=== PATIENT | female | born 1955 | race Hispanic/Latino ===

== ENCOUNTER 2017-04-10 18:46 | Inpatient (IN) | payer OTHER, BC ==
[2017-04-10 18:47] VITALS: BMI 35.4
--- NOTE | 2017-04-10 19:10 | ED PDOC ---
Arrival/HPI - General Historian: Patient EM Caveat: Acuity of Condition - History of Present Illness Time/Duration: Prior to Arrival Symptom Onset: Sudden Symptom Course: Unchanged Quality: Aching Severity Level: Mild Activities at Onset: Rest Context: Home <URIAH SANTOS - Last Filed: 04/10/17 20:48> <Sherwin Enriquez - Last Filed: 04/10/17 22:30> - General Chief Complaint: Lower Extremity Problem/Injury - History of Present Illness Narrative History of Present Illness (Text): 04/10/17 19:06 62yo F PMH HTN and b/l knee arthritis who presents s/p fall x2 earlier today. pt states that she was getting into her 's van (elevated) and bumped her L knee as she was getting in, twisted her R leg and fell out on the ground. Pt had trouble getting back on her feet, and felt her knees locking as she tried extending her knees. Pt required assistance in getting off the ground and in walking to the house. as she was getting into the house, the pt fell into the house at the last step and could not get up. She denies head trauma, LOC. She did complain about some dizziness and nausea. Pt remained on the floor till EMT arrived. 04/10/17 19:11 (URIAH SANTOS) Past Medical History - Provider Review Nursing Documentation Reviewed: Yes - Past History Past History: Non-Contributing - Reproductive Menopause: Yes - Past Medical History Past Medical History: Non-Contributing - Cardiac Hx Cardiac Disorders: Yes Hx Hypertension: Yes - Pulmonary Hx Respiratory Disorders: No - Neurological Hx Neurological Disorder: No - HEENT Hx HEENT Disorder: No - Renal Hx Renal Disorder: Yes Hx Kidney Stones: Yes (PASSED WITHOUT INTERVENTION) - Endocrine/Metabolic Hx Endocrine Disorders: No - Hematological/Oncological Hx Blood Disorders: No - Integumentary Hx Dermatological Disorder: No - Musculoskeletal/Rheumatological Hx Musculoskeletal Disorders: Yes Hx Osteoarthritis: Yes (b/l knees) - Gastrointestinal Hx Gastrointestinal Disorders: No - Genitourinary/Gynecological Hx Genitourinary Disorders: No - Psychiatric Hx Psychophysiologic Disorder: No Hx Substance Use: No - Surgical History Hx Arthroscopy: Yes (BILAT KNEES) Hx Hysterectomy: Yes Other/Comment: uterin ca - Anesthesia Hx Anesthesia: Yes Hx Anesthesia Reactions: No Hx Malignant Hyperthermia: No <URIAH SANTOS - Last Filed: 04/10/17 20:48> Family/Social History Smoking Status: Former Smoker Hx Alcohol Use: No Hx Substance Use: No <URIAH SANTOS - Last Filed: 04/10/17 20:48> - Physician Review Nursing Documentation Reviewed: Yes Family/Social History: Unknown Family HX <Sherwin Enriquez - Last Filed: 04/10/17 22:30> Allergies/Home Meds <URIAH SANTOS - Last Filed: 04/10/17 20:48> <Sherwin Enriquez - Last Filed: 04/10/17 22:30> Allergies/Adverse Reactions: Allergies No Known Allergies Allergy (Verified 04/10/17 19:03) Home Medications: Home Meds Medication Instructions Recorded Confirmed Enalapril Maleate 20 mg PO DAILY 07/04/14 04/10/17 Aspirin [Ecotrin] 81 mg PO DAILY 04/10/17 04/10/17 Review of Systems - Physician Review All systems were reviewed & negative as marked: Yes - Review of Systems Systems not reviewed;Unavailable: Acuity of Condition Constitutional: Normal. absent: Fatigue Musculoskeletal: Normal, Arthralgias (b/l knees ), Joint Swelling (b/l knees). absent: Back Pain, Neck Pain Neurological: Dizziness (mild ). absent: Headache, Focal Weakness, Gait Changes , Disequilibrium <URIAH SANTOS Last Filed: 04/10/17 20:48> Physical Exam Vital Signs Reviewed: Yes Appearance: Positive for: Well-Appearing Pain Distress: None Mental Status: Positive for: Alert and Oriented X 3 - Systems Exam Head: Present: Atraumatic, Normocephalic Pupils: Present: PERRL Extroacular Muscles: Present: EOMI Conjunctiva: Present: Normal Ears: Present: Normal Nose (External): Present: Atraumatic Neck: Present: Normal Range of Motion. No: MIDLINE TENDERNESS, Paraspinal Tenderness Respiratory/Chest: Present: Clear to Auscultation, Accessory Muscle Use Cardiovascular: Present: Regular Rate and Rhythm, Normal S1, S2 Abdomen: Present: Normal Bowel Sounds. No: Tenderness, Distention Back: Present: Normal Inspection Upper Extremity: Present: Normal Inspection, Normal ROM, NORMAL PULSES. No: Edema Lower Extremity: Present: Normal Inspection, NORMAL PULSES, Normal ROM, Other ( tender to palpation L superior patella and R lateral tibial plateau). No: CALF TENDERNESS, Deformity Neurological: Present: Speech Normal, Motor Func Grossly Intact, Normal Sensory Function Skin: Present: Warm, Dry, Normal Color <TOMURIAH - Last Filed: 04/10/17 20:48> Vital Signs Temp Pulse Resp BP Pulse Ox 04/10/17 18:54 98.8 F 102 H 18 162/84 H 100 Medical Decision Making <URIAH SANTOS - Last Filed: 04/10/17 20:48> <Sherwin Enriquez - Last Filed: 04/10/17 22:30> ED Course and Treatment: 04/10/17 19:14 Impression: b/l knee pain s/p fall Differential Diagnosis included but are not limited to: patellar fracture vs contusion vs arthritic pain Plan: - Reassess and disposition - B/L knee XRays Progress Notes: (URIAH SANTOS) Patient Seen With Resident: In agreement with resident note which contains more details about the patient. Patient was seen and evaluated with resident. Came up with plan and treatment together. 04/10/17 21:57 Seen and examined with the resident. Our history and physical exam reveals a who had minor injuries to both knees when she was getting into an SUV. She then fell injuring both knees. She is either unable or unwilling to straight leg raise on both lower extremities. Her lower legs on both lower extremities fall against gravity when her femurs are held. She may have bilateral ruptured quadriceps mechanism. I discussed her case with the orthopedist who requested the patient be admitted to the PMD and he will see the patient in the morning. 04/10/17 22:14 Discussed with 's PA, J Luis, who will admit to his service. Admitting laboratories and EKG have been ordered for her to follow. MRI has been ordered for the morning 04/10/17 22:29 EKG shows normal sinus rhythm rate approximately [address] or T-wave changes (Sherwin Enriquez) - RAD Interpretation Radiology Orders: 04/10/17 19:03 KNEE W PATELLA BILAT 3 VIEW [RAD] Stat 04/10/17 22:16 KNEE W/O CONTRAST BILATERAL [MRI] Urgent Disposition/Present on Arrival - Present on Arrival History of DVT/PE: No History of Uncontrolled Diabetes: No Urinary Catheter: No History of Decub. Ulcer: No History Surgical Site Infection Following: None <URIAH SANTOS - Last Filed: 04/10/17 20:48> - Present on Arrival Any Indicators Present on Arrival: No History of DVT/PE: No History of Uncontrolled Diabetes: No Urinary Catheter: No History of Decub. Ulcer: No - Disposition Have Diagnosis and Disposition been Completed?: Yes Disposition Time: 22:16 Patient Plan: Observation <Sherwin Enriquez - Last Filed: 04/10/17 22:30> - Disposition Diagnosis: Ruptured, tendon, quadriceps Disposition: HOSPITALIZED Patient Problems: Current Active Problems Problem Status Onset Ruptured, tendon, quadriceps Acute Condition: GOOD Referrals: Anderson Hector MD [Primary Care Provider] - Follow up with primary Forms: [employer] (Hebrew)
[2017-04-10 23:34] LABS: BASO # 0.01 K/mm3 (0.0-2.0); BASO % 0.1 % (0.0-3.0); GRAN # 15.23 (1.4-6.5); HEMATOCRIT 38.8 % (36.0-48.0); LYMPH # 1.1 (1.2-3.4); LYMPH % 6.5 % (22.0-35.0); MEAN CELL VOLUME 82.2 fl (80.0-105.0); MEAN CORPUSCULAR HEMOGLOBIN 27.3 pg (25.0-35.0); MEAN CORPUSCULAR HGB CONC 33.2 g/dl (31.0-37.0); MEAN PLATELET VOLUME 9.4 fl (7.0-11.0); MONO # 0.8 (0.1-0.6); MONO % 4.4 % (1.0-6.0); RED CELL DISTRIBUTION WIDTH 14.5 % (11.5-14.5); WHITE BLOOD COUNT 17.1 10^3/ul (4.5-11.0)
[2017-04-10 23:43] LABS: INR 0.94 (0.93-1.08); PARTIAL THROMBOPLASTIN TIME 26.6 Seconds (23.7-30.8)
[2017-04-10 23:45] LABS: ALB/GLOB RATIO 1.5 (1.1-1.8); ALKALINE PHOSPHATASE 82 U/L (38-126); ALT/SGPT 35 U/L (7-56); AST/SGOT 31 U/L (14-36); BILIRUBIN,TOTAL 0.3 mg/dL (0.2-1.3); BLOOD UREA NITROGEN 27 mg/dL (7-21); CALCIUM 9.4 mg/dL (8.4-10.5); CARBON DIOXIDE 21 mmol/L (21-33); CHLORIDE 106 mmol/L (98-107); GFR AFRICAN-AMERICAN > 60; GLUCOSE,RANDOM 116 mg/dL (70-110); POTASSIUM 3.8 mmol/L (3.6-5.0); SODIUM 137 mmol/L (132-148); TOTAL PROTEIN 7.3 g/dL (5.8-8.3)
[2017-04-10 23:56] LABS: TROPONIN I 0.02 ng/mL
[2017-04-11] MEDS: Oxycodone/Acetaminophen 5/325 mg Tab PO PRN ×2 (01:39→21:09)
[2017-04-11] MEDS: HYDROmorphone 0.5 mg/0.5 ml ISec IVP PRN ×4 (02:51→23:52)
--- NOTE | 2017-04-11 08:58 | RAD ---
PROCEDURE: Bilateral Knee Radiographs. HISTORY: s/p fall COMPARISON: None. FINDINGS: BONES: Right Knee: Normal. No fracture. Left Knee: Normal. No fracture. JOINTS: Right Knee: Tricompartmental osteoarthritis most prominent in medial and patellofemoral compartments. No articular erosions. Left knee: Tricompartmental osteoarthritis most prominent in medial and patellofemoral compartments. No articular erosions. SOFT TISSUES: Right Knee: Normal. Left Knee: Normal. JOINT EFFUSION: Right Knee: None. Left Knee: None. OTHER FINDINGS: None. IMPRESSION: Bilateral tricompartmental osteoarthritis. No acute fracture.
--- NOTE | 2017-04-11 09:33 | CARD ---
APPROVED REPORT EKG Measurement Heart [id number] <Conclusion> Normal sinus rhythm Normal ECG
--- NOTE | 2017-04-11 09:50 | RAD ---
HISTORY: pre op COMPARISON: 02/15/2014 FINDINGS: LUNGS: No active pulmonary disease. PLEURA: No significant pleural effusion identified, no pneumothorax apparent. CARDIOVASCULAR: Normal. OSSEOUS STRUCTURES: No significant abnormalities. VISUALIZED UPPER ABDOMEN: Normal. OTHER FINDINGS: None. IMPRESSION: No active disease.
--- NOTE | 2017-04-11 10:23 | CON ---
ORTHOPEDIC CONSULT DATE: 04/11/2017 HISTORY OF PRESENT ILLNESS: The patient was admitted to the emergency room last night, on 04/10/2017 with bilateral knee pain. Diagnosis was made after we did bilateral MRI showing that she has rupture of both quadriceps and then towards on the left than the right will require repair to give her functional knees because she is unable to fully extend her knee and difficult to her quadriceps because of the disruption of quadriceps tendon and no major medical problems, hopefully we could do it today to perform primary repair with FiberWire and ZipLoop technology to secure the quadriceps to the patella and okay for function of the ambulate with a walker, but she have to be in bilateral splints for at least 6 weeks so the tissues heal and have to be without protective splint. She should have to walk with a walker for now and she could put weight on both legs after surgery and then after 6 weeks she should be able to be pretty with smaller brace to rule out to walk with protection hinged brace and then therapy, and she may have to go to subacute rehab, but she cannot handle her disability at home. We will get in to that later, but hopefully we could do the surgery today when the patient is cleared by Dr. Hector. Grayson Byrd DO
--- NOTE | 2017-04-11 10:59 | HP ---
HISTORY OF PRESENT ILLNESS: Paris is a 62-year-old white female with a history of bilateral osteoarthritis of both knees and hypertension. The patient was in her usual state of health when she had difficulty a van and had fallen and also injured her knees on the opening of the van door. She has a history of bilateral knee arthritis. She fell approximately 2 times on the day of admission, getting injured her 's van and hit both left and right knee, twisted, and she fell to the ground, and she had trouble getting back of her feet. She fell again, trying to get to her feet, then she was able to be brought to the emergency room after she had gone home and fell in her house again, would not able to pick any steps, came to the hospital, and was admitted. The patient on admission had x-rays of the knees done and also had MRI and was found to have bilateral quadriceps muscle rupture of left and right knee. The patient does have history of hypertension. She takes lisinopril at home 20 mg once a day for blood pressure. She received pain medication in the emergency room. She does have a history of arthroscopic knee surgery on the right knee by Dr. Bolivar in the past. PHYSICAL EXAMINATION: GENERAL: The patient is a well-developed slightly obese white female in moderate distress. VITAL SIGNS: Blood pressure of 148/63, heart rate of 91, and temperature of 98.2. HEENT: Essentially within normal limits. HEART: Regular sinus rhythm. No S3 or murmurs. CHEST: Clear to auscultation and percussion. Carotid without bruits. ABDOMEN: Benign. EXTREMITIES: Without cyanosis, clubbing, or edema. There is tenderness and pain in both thighs and crepitus of both knees without erythema without evidence of cellulitis. LABORATORY DATA: Revealed white count of 17,100 on admission. She is also found to have an old BUN and creatinine. Sugar was 116. Potassium was 3.8. Troponins were negative. IMPRESSION AND PLAN: Bilateral quadriceps rupture on the left and right knee in the patient who recently fell multiple times and the history of degenerative arthritis of the knees and mild hypertension. The patient is medically cleared for surgery today and will be follows postoperatively. Anderson Hector MD
--- NOTE | 2017-04-11 11:26 | MRI ---
MRI right and left knee History: Trauma. Quadriceps tendon rupture. Comparison: None available. Technique: Multi-echo multiplanar sequences were performed through the right and left knee without the use of intravenous contrast. Findings: Right knee: Anterior cruciate ligament is preserved. Posterior cruciate ligament is preserved. Blunting and fraying noted at the posterior horn of the medial meniscus with some adjacent increased signal at the posterior meniscocapsular junction suggestive for a tear. Adjacent moderate to high-grade strain at the posterior meniscocapsular junction. Additional blunting at the tip of the body of the medial meniscus. Lateral meniscus is preserved. High-grade sprain and or partial tear the medial collateral ligament. High-grade sprain of the fibular collateral ligament. Biceps femoris and popliteus tendon attachments are preserved. Complete rupture of the quadriceps tendon with approximately 1.2 centimeter retraction of the distal tendon fibers from the superior patella. Complete rupture of the medial patellar retinaculum from its attachment on the medial patella. Near complete/complete rupture of the lateral patellar retinaculum with a few tendon strand fibers perhaps partially intact. Laxity of the patellar tendon. Prominent cartilage thinning and loss overlying the medial and lateral patellar facets. Mild lateral subluxation of the patella. Moderate cartilage thinning and loss involving the anterior to midportion of the medial compartment of the femorotibial joint space. 3 millimeter subchondral cyst formation within the posterior proximal tibia. Mild cartilage thinning overlying the anterior aspect of the lateral femoral condyle. Moderate suprapatellar joint effusion. Heterogeneity of the visualized marrow with patchy decreased T1 signal suggestive for hematopoietic marrow reconversion. Left knee: Thinning and fraying with increased signal seen within the visualized anterior cruciate ligament suggestive for partial tearing with a moderate grade sprain. Posterior cruciate ligament is preserved. Complex tear at the junction of the body and posterior horn of the medial meniscus with blunting of the posterior horn. Linear grade 1 intrasubstance degeneration in the anterior root and horn of the lateral meniscus. Partial tear and or high grade sprain of proximal attachment medial collateral ligament. High-grade strain of the iliotibial band. Fibular collateral ligament is preserved. Biceps femoris tendon attachment is preserved. Popliteus tendon attachment is preserved. Complete rupture of the quadriceps tendon with 1.2 centimeter retraction of the distal tendon strand fibers from the superior patella. Partial tearing with high grade strain of the lateral patellar retinaculum with some lateral subluxation of the patella. Prominent amount of loculated fluid and or hemorrhage seen overlying the lateral patella and lateral patellar retinacula measuring up 4.3 x 1.4 centimeters. Moderate to high grade strain of the medial patellar retinaculum which appears thinned and attenuated. Laxity of the patellar tendon. Prominent cartilage thinning and loss overlying the medial and lateral patellar facets. Prominent cartilage thinning and loss involving the anterior midportion of the medial compartment of the femorotibial joint space. Signal change in the adjacent marrow of the mid medial proximal tibia at the articular surface suggestive for osteochondral change. Cartilage thinning overlying the anterior aspect of the lateral femoral condyle signal change in the adjacent marrow suggestive for osteochondral change. Small suprapatellar joint effusion. Heterogeneity of the visualized marrow with patchy decreased T1 signal suggestive for hematopoietic marrow reconversion. Prominent signal abnormality seen within the visualized vastus medialis and lateralis musculature distally which may represent a partial tear and or sprain. Impression: Right Knee: 1. Complete rupture of the quadriceps tendon with approximately 1.2 centimeter retraction of the distal tendon fibers from the superior patella. 2. Complete rupture of the medial patellar retinaculum from its attachment on the medial patella. 3. Near complete/complete rupture of the lateral patellar retinaculum with a few tendon strand fibers perhaps partially intact. 4. Blunting and fraying noted at the posterior horn of the medial meniscus with some adjacent increased signal at the posterior meniscocapsular junction suggestive for a tear. Adjacent moderate to high-grade strain at the posterior meniscocapsular junction. Additional blunting at the tip of the body of the medial meniscus. 5. High-grade sprain and or partial tear the medial collateral ligament. 6. High-grade sprain of the fibular collateral ligament. 7. Prominent cartilage thinning and loss overlying the medial and lateral patellar facets. Mild lateral subluxation of the patella. Moderate cartilage thinning and loss involving the anterior to midportion of the medial compartment of the femorotibial joint space. 3 millimeter subchondral cyst formation within the posterior proximal tibia. Mild cartilage thinning overlying the anterior aspect of the lateral femoral condyle. 8. Moderate suprapatellar joint effusion. Left knee: 1. Complete rupture of the quadriceps tendon with 1.2 centimeter retraction of the distal tendon strand fibers from the superior patella. 2. Partial tearing with high grade strain of the lateral patellar retinaculum with some lateral subluxation of the patella. Prominent amount of loculated fluid and or hemorrhage seen overlying the lateral patella and lateral patellar retinacula measuring up 4.3 x 1.4 centimeters. 3. Moderate to high grade strain of the medial patellar retinaculum which appears thinned and attenuated. 4. Thinning and fraying with increased signal seen within the visualized anterior cruciate ligament suggestive for partial tearing with a moderate grade sprain. 5. Complex tear at the junction of the body and posterior horn of the medial meniscus with blunting of the posterior horn. 6. Linear grade 1 intrasubstance degeneration in the anterior root and horn of the lateral meniscus. 7. Partial tear and or high grade sprain of proximal attachment medial collateral ligament. 8. High-grade strain of the iliotibial band. 9. Prominent cartilage thinning and loss overlying the medial and lateral patellar facets. Prominent cartilage thinning and loss involving the anterior midportion of the medial compartment of the femorotibial joint space. Signal change in the adjacent marrow of the mid medial proximal tibia at the articular surface suggestive for osteochondral change. Cartilage thinning overlying the anterior aspect of the lateral femoral condyle signal change in the adjacent marrow suggestive for osteochondral change. 10. Small suprapatellar joint effusion. 11. Heterogeneity of the visualized marrow with patchy decreased T1 signal suggestive for hematopoietic marrow reconversion. 12. Prominent signal abnormality seen within the visualized vastus medialis and lateralis musculature distally which may represent a partial tear and or sprain.
[2017-04-11] MEDS ORDERED: Midazolam 2 MG/2 ML VIAL ONE (14:36)
[2017-04-11] MEDS ORDERED: Propofol 10 mg/ml Inj (20 ML) ONE (14:36)
[2017-04-11] MEDS ORDERED: Rocuronium 10 mg/ml (5 ml) ONE ×2 (14:40→15:46)
[2017-04-11] MEDS ORDERED: Bupivacaine 0.5% Inj(30mL) ONE ×2 (14:43→17:22)
[2017-04-11] MEDS ORDERED: Vancomycin 1 g Inj ONE (16:09)
[2017-04-11] MEDS ORDERED: Bupivacaine 0.25% Inj(30mL) ONE (17:22)
[2017-04-11] MEDS ORDERED: Glycopyrrolate 0.2 mg/ml (2ml vial) ONE (17:53)
[2017-04-11] MEDS ORDERED: Neostigmine Methylsulfate 3mg/3ml Syringe IV ONE (17:53)
[2017-04-11] MEDS ORDERED: HYDROmorphone 0.5 mg/0.5 ml ISec ONE (18:43)
[2017-04-11] MEDS ORDERED: HYDROmorphone 0.5 mg/0.5 ml ISec IVP PRN (18:43)
[2017-04-11] MEDS ORDERED: Lactated Ringer's 1,000 ML IV SCH (18:45)
[2017-04-11] MEDS ORDERED: HYDROmorphone 0.5 mg/0.5 ml ISec SC PRN (19:14)
[2017-04-11] MEDS ORDERED: ceFAZolin 1 gm in NS 1 GM/100 ML BAG IVPB STA (19:22)
[2017-04-11] MEDS: Dextrose 5%/0.45% NS 1,000 ML IV SCH (19:59)
[2017-04-12] MEDS: Oxycodone/Acetaminophen 5/325 mg Tab PO PRN ×2 (02:15→09:43)
[2017-04-12] MEDS: HYDROmorphone 0.5 mg/0.5 ml ISec IVP PRN ×2 (04:05→08:56)
[2017-04-12] MEDS: ceFAZolin 1 gm in NS 1 GM/100 ML BAG IVPB SCH ×4 (06:55→21:13)
--- NOTE | 2017-04-12 08:12 | OP ---
DATE: 04/11/2017 PREOPERATIVE DIAGNOSIS: Bilateral quadriceps tear, acute from day of injury of 04/10/2017, getting out of her car. POSTOPERATIVE DIAGNOSIS: Bilateral quadriceps tear, acute from day of injury of 04/10/2017, getting out of her car. PROCEDURE: Primary repair of both right and left quadriceps tendons with 100% disruption of both of them with medial and lateral retinacular disruption with ZipLoops with ToggleLoc from [employer] x4, two for the right and two for left side. TYPE OF ANESTHESIA: General endotracheal tube. DESCRIPTION OF PROCEDURE: The patient was taken to OR. Both legs were prepped and draped in a sterile fashion. The right leg was done first, making vertical incision over the right knee, 3 inches above and 3 inches below the tip of the patella, deep knife used to go through the tissues. Abundant adipose tissue identified. Right away, we could see the torn quadriceps tendon proximal to the patella, which was debrided off its necrotic tissue and we roughened up the patella superior surface to allow the tendon to adhere to better. Then we put the ZipLoc ToggleLoc devices from [employer], one in the lateral retinacular and the lateral portion of the quadriceps coming up vertically incorporating the ToggleLoc Ziploop and tying up proximally of the #5 FiberWire. Then, we put a medial bank of quadriceps Krackow sutures in from proximal to distal and then distal to proximal tying the sutures and incorporated the ToggleLoc loop. We did this to the right knee, so now we had control of the medial and lateral portions of the quadriceps. We pulled on it. As we took out this slack and has good suture control of the quadriceps, so I put in the drill holes in the patella and passed the medial ZipLoc device to anchor into the distal portion of the patella and then we did the same thing on the medial side of that right knee. We cinched down the knot until the quadriceps adhere to the proximal portion of the patella and we flexed the knee to 90 degrees without any disruption. Then we closed the wound with controlling bleeding with electrocautery, irrigated out with normal saline putting some powder vancomycin in the depth of the wound and approximating the medial and lateral retinacular tears with #1 Vicryl and multiple subcutaneous layered suture was done. There was a poor tissue turgor. Then we did a dermal subcuticular sutures interrupted in combination of #2 Nylon with far-near, near-far technique of suturing and in between the nylon, we put stainless steel betty. Again, I could flex the knee to 90 degrees prior to wound closure without any disruption of the repair. Then, we did the similar technique to the left knee, same incision, same ZipLoop technology using medial and lateral quadriceps control with the Krackow sutures and anchoring these sutures into the patella with a button distally. No more x-rays were needed and also that knee was flexed to 90 degrees without any disruption. Because it is secure nature of the repair, we did not have to put her soon in the cast, but we put a compression dressing on and then two knee immobilizers. No tourniquet was utilized. The patient was taken to recovery room with femoral nerve blocks by Anesthesia lateral left and right knee. Grayson Byrd DO
[2017-04-12] MEDS: Dextrose 5%/0.45% NS 1,000 ML IV SCH (09:01)
[2017-04-12] MEDS ORDERED: ENALAPRIL MALEATE 20 MG PO SCH (10:00)
--- NOTE | 2017-04-12 10:58 | PN ---
SUBJECTIVE: A 62-year-old white female admitted to the hospital with bilateral ruptured quadriceps tendons. The patient was taken to surgery by Dr. Byrd to have repair bilaterally done. The patient's MRI did show extensive disease in both knees including menisci tears, medial and lateral collateral ligament degeneration and also fraying of the ACL. The patient tolerated the procedure well. She is awake, alert and in bed. She has pain, approximately 8/10. PHYSICAL EXAMINATION: VITAL SIGNS: Stable. Her blood pressure is 110/53, temperature is 98.3. LABORATORY DATA: She did have an elevated white count of 17,000 on admission. The patient was in severe pain, otherwise, her laboratory data unremarkable. CBC will be repeated. ASSESSMENT AND PLAN: The patient is postoperative, doing well, afebrile. Pain needs to be controlled. We were adjusting her pain medications. She will be also evaluated for physical therapy and occupational therapy and outpatient rehab. Anderson Hector MD
[2017-04-12] MEDS: HYDROmorphone 1 mg/ml ISec IVP PRN ×3 (12:26→21:13)
--- NOTE | 2017-04-12 15:03 | PN ---
DATE: 04/12/2017 SUBJECTIVE: A 62-year-old white female status post postoperative bilateral patellar and quadriceps tendon ruptures. Dictated by Dr. Byrd, the patient is postop, doing well on day 1. Vital signs are stable. The patient is complaining of pain approximately 7/10. She is being medicated for pain. Plan is to get physical therapy, occupational therapy, and then transfer to [facility] for continued rehab. Anderson Hector MD
--- NOTE | 2017-04-12 15:04 | PN ---
POSTOPERATIVE REPORT DATE: 04/12/2017 LOCATION: Room 562, bed 2. She underwent bilateral quadriceps repair yesterday, is comfortable in bed. We will try to get her up out of bed with physical therapy. She can put weight on her legs, but no range of motion of the knees yet and she is in bilateral long leg splints. I told her the need for subacute rehab and blood thinners to minimize the chance of DVT or pulmonary embolism. I will follow the patient closely. Otherwise, she is doing very good. Grayson Byrd DO
[2017-04-13] MEDS: HYDROmorphone 1 mg/ml ISec IVP PRN ×5 (01:02→21:12)
[2017-04-13] MEDS: ceFAZolin 1 gm in NS 1 GM/100 ML BAG IVPB SCH ×3 (05:43→21:12)
[2017-04-13 10:20] LABS: BASO # 0.02 K/mm3 (0.0-2.0); BASO % 0.2 % (0.0-3.0); EOS % 0.2 % (1.5-5.0); GRAN # 10.04 (1.4-6.5); GRAN % 81.5 % (50.0-68.0); HEMATOCRIT 29.3 % (36.0-48.0); LYMPH # 1.1 (1.2-3.4); MEAN CELL VOLUME 83.2 fl (80.0-105.0); MEAN CORPUSCULAR HEMOGLOBIN 27.3 pg (25.0-35.0); MEAN CORPUSCULAR HGB CONC 32.8 g/dl (31.0-37.0); MEAN PLATELET VOLUME 8.8 fl (7.0-11.0); MONO # 1.1 (0.1-0.6); MONO % 9.1 % (1.0-6.0); RED CELL DISTRIBUTION WIDTH 14.7 % (11.5-14.5); WHITE BLOOD COUNT 12.3 10^3/ul (4.5-11.0)
[2017-04-13 10:30] LABS: ALB/GLOB RATIO 1.2 (1.1-1.8); ALKALINE PHOSPHATASE 57 U/L (38-126); ALT/SGPT 25 U/L (7-56); AST/SGOT 27 U/L (14-36); BILIRUBIN,TOTAL 0.5 mg/dL (0.2-1.3); BLOOD UREA NITROGEN 8 mg/dL (7-21); CALCIUM 8.2 mg/dL (8.4-10.5); CARBON DIOXIDE 28 mmol/L (21-33); CHLORIDE 102 mmol/L (98-107); GFR AFRICAN-AMERICAN > 60; GLUCOSE,RANDOM 131 mg/dL (70-110); POTASSIUM 3.6 mmol/L (3.6-5.0); SODIUM 136 mmol/L (132-148); TOTAL PROTEIN 5.7 g/dL (5.8-8.3)
[2017-04-13] MEDS: Oxycodone/Acetaminophen 5/325 mg Tab PO PRN (11:20)
--- NOTE | 2017-04-13 14:18 | CP.PCM.PN ---
<Ricki Camacho - Last Filed: 04/13/17 14:07> Subjective - Date & Time of Evaluation Date of Evaluation: 04/13/17 Time of Evaluation: 07:55 - Subjective Subjective: Subjective: Patient seen and examined at bedside. Resting comfortably in bed. No acute overnight events. Patient states the pain in the lower extremities has improved. Compliant with PT/OT. Offers no new complaints at this time. Denies f/ c/cp/sob/abdominal pain/n/v/d/c/urinary sxs. Physical Examination: Head: Present: Atraumatic, Normocephalic Pupils: Present: PERRL Extroacular Muscles: Present: EOMI Conjunctiva: Present: Normal Ears: Present: Normal Nose (External): Present: Atraumatic Neck: Present: Normal Range of Motion. No: MIDLINE TENDERNESS, Paraspinal Tenderness Respiratory/Chest: Present: Clear to Auscultation, Accessory Muscle Use Cardiovascular: Present: Normal S1, S2 Abdomen: Present: Normal Bowel Sounds. No: Tenderness, Distention Back: Present: Normal Inspection Upper Extremity: Present: Normal Inspection, Normal ROM, NORMAL PULSES. No: Edema Lower Extremity: bilateral lower extremities imobilizers present Neurological: Patient is awake, alert, responds to verbal stimuli, answers questions appropriately, follows commands, and moves upper extremities past midline Skin: Present: Warm, Dr Assessment and Plan: Patient is a 62 year old female PMH HTN and b/l knee arthritis who was admitted for evaluation and treatment of falls x 2. Fall; Bilateral Quadriceps Tendon Rupture - POD # 1 s/p bilateral quadriceps tendon and achilles tendon repair - continue bilateral imobilizers - pain control- diluadid and percocet prn, continue Colace to prevent opiod induced constipation - continue cefazolin - high risk fall precautions - c/w PT/OT - incentive spirometer encouraged Hx of Hypertension - continue with lisinopril PPx - no AC at this time, SCDs - protonix Patient seen, case discussed with, and plan approved by attending physician, Dr. Byrne. Objective - Vital Signs/Intake and Output Vital Signs (last 24 hours): Temp Pulse Resp BP Pulse Ox 98.6 F 96 H 18 145/66 94 L 04/13/17 07:30 04/13/17 07:30 04/13/17 07:30 04/13/17 07:30 04/13/17 07:30 Intake and Output: 04/13/17 04/13/17 06:59 18:59 Intake Total 1040 540 Output Total 1300 1600 Balance -260 -1060 - Medications Medications: Current Medications Aspirin (Ecotrin) 81 mg PO Q12 [facility] Last Admin: 04/12/17 09:00 Dose: 81 mg Docusate Sodium (Colace) 100 mg PO BID [facility] Last Admin: 04/13/17 09:33 Dose: 100 mg Hydromorphone HCl (Dilaudid) 0.5 mg IVP Q4H PRN PRN Reason: Pain, severe (8-10) Last Admin: 04/11/17 10:44 Dose: 0.5 mg Hydromorphone HCl (Dilaudid) 0.5 mg IVP Q4H PRN PRN Reason: Pain, moderate (4-7) Last Admin: 04/12/17 08:56 Dose: 0.5 mg Hydromorphone HCl (Dilaudid) 1 mg IVP Q4H PRN PRN Reason: Pain, severe (8-10) Last Admin: 04/13/17 09:33 Dose: 1 mg Dextrose/Sodium Chloride (Dextrose 5%/0.45% Ns 1000 Ml) 1,000 mls @ 75 mls/hr IV .[id number] [facility] Last Admin: 04/12/17 09:01 Dose: 75 mls/hr Cefazolin Sodium (Ancef 1gm In Ns) 1 gm in 100 mls @ 100 mls/hr IVPB Q8 RODRIGUEZ PRN Reason: Protocol Last Admin: 04/13/17 13:53 Dose: 100 mls/hr Lisinopril (Zestril) 20 mg PO DAILY [facility] Last Admin: 04/13/17 09:33 Dose: 20 mg Oxycodone/Acetaminophen (Percocet 5/325 Mg Tab) 1 tab PO Q4H PRN PRN Reason: Pain, Mild (1-3) Stop: 04/14/17 01:28 Last Admin: 04/13/17 11:20 Dose: 1 tab - Labs Labs: 04/13/17 10:00 04/13/17 10:00 PT 10.1 Seconds (9.9-11.8) 04/10/17 22:54 INR 0.94 (0.93-1.08) 04/10/17 22:54 APTT 26.6 Seconds (23.7-30.8) 04/10/17 22:54 <Kinga Byrne - Last Filed: 04/14/17 16:56> Objective - Vital Signs/Intake and Output Vital Signs (last 24 hours): Temp Pulse Resp BP Pulse Ox 99 F 93 H 20 144/69 95 04/14/17 08:01 04/14/17 10:53 04/14/17 08:01 04/14/17 10:53 04/14/17 08:01 Intake and Output: 04/14/17 04/14/17 06:59 18:59 Intake Total 600 960 Output Total 1500 Balance -900 960 - Labs Labs: 04/14/17 06:00 04/13/17 10:00 PT 10.1 Seconds (9.9-11.8) 04/10/17 22:54 INR 0.94 (0.93-1.08) 04/10/17 22:54 APTT 26.6 Seconds (23.7-30.8) 04/10/17 22:54 Attending/Attestation - Attestation I have personally seen and examined this patient.: Yes I have fully participated in the care of the patient.: Yes I have reviewed all pertinent clinical information, including history, physical exam and plan: Yes Notes (Text): I have seen and examined the patient at bedside. Agree with the above note with the following additions/ exceptions: Briefly this is 62 year old female with history of HTN and b/l knee arthritis who was admitted s/p falls and developed bilateral quad tendon rupture. Continue analgesics and restart aspirin. [place] PT and incentive spirometer. PT is recommending acute rehab. Upon discharge patient will follow up with Dr Hector. Dr Kinga Byrne
[2017-04-14] MEDS: HYDROmorphone 1 mg/ml ISec IVP PRN ×2 (01:23→06:45)
[2017-04-14] MEDS: ceFAZolin 1 gm in NS 1 GM/100 ML BAG IVPB SCH ×2 (06:16→15:53)
[2017-04-14 06:31] LABS: BASO # 0.02 K/mm3 (0.0-2.0); BASO % 0.2 % (0.0-3.0); EOS % 0.4 % (1.5-5.0); GRAN # 8.52 (1.4-6.5); GRAN % 77.4 % (50.0-68.0); HEMATOCRIT 28.1 % (36.0-48.0); LYMPH # 1.4 (1.2-3.4); LYMPH % 12.6 % (22.0-35.0); MEAN CELL VOLUME 82.6 fl (80.0-105.0); MEAN CORPUSCULAR HEMOGLOBIN 27.1 pg (25.0-35.0); MEAN CORPUSCULAR HGB CONC 32.7 g/dl (31.0-37.0); MEAN PLATELET VOLUME 8.8 fl (7.0-11.0); MONO % 9.4 % (1.0-6.0); RED CELL DISTRIBUTION WIDTH 14.6 % (11.5-14.5)
[2017-04-14 07:06] VITALS: PULSE 93
[2017-04-14 08:02] VITALS: BP 144/69; RESP 20; TEMP 99; O2SAT 95
--- NOTE | 2017-04-14 08:22 | PN ---
DATE: 04/13/2017 POSTOPERATIVE REPORT LOCATION: Room 562, bed 2. The patient is 2 days post bilateral quadriceps rupture repaired that day. She had a repair c zip loops with anchering to the patella. She got up out of bed yesterday and did a little walking . Hopefully, we could progress her therapy and a little more before she goes to subacute rehab. Hopefully, the facility is [facility] and the pain is controllable. We will try to decrease her narcotic usage though. Grayson Byrd DO MTDD
[2017-04-14] MEDS: HYDROmorphone 0.5 mg/0.5 ml ISec IVP PRN ×2 (10:55→14:57)
--- NOTE | 2017-04-14 12:57 | CP.PCM.DIS ---
<Ricki Camacho - Last Filed: 04/14/17 13:06> Provider - Provider Date of Admission: 04/11/17 14:00 Attending physician: Kinga Byrne MD Primary care physician: Anderson Hector MD Time Spent in preparation of Discharge (in minutes): 30 Diagnosis - Discharge Diagnosis (1) Hypertension Status: Acute Priority: Medium (2) Ruptured, tendon, quadriceps Status: Acute Priority: High Hospital Course - Lab Results Lab Results: Most Recent Lab Values WBC 11.0 10^3/ul (4.5-11.0) 04/14/17 06:00 RBC 3.40 10^6/uL (3.5-6.1) L 04/14/17 06:00 Hgb 9.2 g/dL (12.0-16.0) L 04/14/17 06:00 Hct 28.1 % (36.0-48.0) L 04/14/17 06:00 MCV 82.6 fl (80.0-105.0) 04/14/17 06:00 MCH 27.1 pg (25.0-35.0) 04/14/17 06:00 MCHC 32.7 g/dl (31.0-37.0) 04/14/17 06:00 RDW 14.6 % (11.5-14.5) H 04/14/17 06:00 Plt Count 242 10^3/uL (120.0-450.0) 04/14/17 06:00 MPV 8.8 fl (7.0-11.0) 04/14/17 06:00 Gran % 77.4 % (50.0-68.0) H 04/14/17 06:00 Lymph % (Auto) 12.6 % (22.0-35.0) L 04/14/17 06:00 [place] % (Auto) 9.4 % (1.0-6.0) H 04/14/17 06:00 Eos % (Auto) 0.4 % (1.5-5.0) L 04/14/17 06:00 Baso % (Auto) 0.2 % (0.0-3.0) 04/14/17 06:00 Gran # 8.52 (1.4-6.5) H 04/14/17 06:00 Lymph # 1.4 (1.2-3.4) 04/14/17 06:00 [place] # 1.0 (0.1-0.6) H 04/14/17 06:00 Eos # 0.0 (0.0-0.7) 04/14/17 06:00 Baso # 0.02 K/mm3 (0.0-2.0) 04/14/17 06:00 PT 10.1 Seconds (9.9-11.8) 04/10/17 22:54 INR 0.94 (0.93-1.08) 04/10/17 22:54 APTT 26.6 Seconds (23.7-30.8) 04/10/17 22:54 Sodium 136 mmol/L (132-148) 04/13/17 10:00 Potassium 3.6 mmol/L (3.6-5.0) 04/13/17 10:00 Chloride 102 mmol/L (98-107) 04/13/17 10:00 Carbon Dioxide 28 mmol/L (21-33) 04/13/17 10:00 Anion Gap 10 (10-20) 04/13/17 10:00 BUN 8 mg/dL (7-21) 04/13/17 10:00 Creatinine 0.4 mg/dL (0.5-1.4) L 04/13/17 10:00 Est GFR ( Amer) > 60 04/13/17 10:00 Est GFR (Non-Af Amer) > 60 04/13/17 10:00 Random Glucose 131 mg/dL (70-110) H 04/13/17 10:00 Calcium 8.2 mg/dL (8.4-10.5) L 04/13/17 10:00 Total Bilirubin 0.5 mg/dL (0.2-1.3) 04/13/17 10:00 AST 27 U/L (14-36) 04/13/17 10:00 ALT 25 U/L (7-56) 04/13/17 10:00 Alkaline Phosphatase 57 U/L (38-126) 04/13/17 10:00 Lactate Dehydrogenase 552 U/L (333-699) 04/10/17 22:54 Total Creatine Kinase 95 U/L (35-230) 04/10/17 22:54 Troponin I 0.02 ng/mL 04/10/17 22:54 Total Protein 5.7 g/dL (5.8-8.3) L 04/13/17 10:00 Albumin 3.2 g/dL (3.0-4.8) 04/13/17 10:00 Globulin 2.6 gm/dL 04/13/17 10:00 Albumin/Globulin Ratio 1.2 (1.1-1.8) 04/13/17 10:00 Blood Type A POSITIVE 04/11/17 09:30 Blood Type Confirm A POSITIVE 04/11/17 11:30 Antibody Screen Negative 04/11/17 09:30 BBK History Checked No verified bt 04/11/17 09:30 - Hospital Course Hospital Course: Patient is a 62 year old female PMH HTN and b/l knee arthritis who was admitted for evaluation and treatment of falls x 2. With the use of physical examinations, lab work, and imaging the patient was diagnosed with and treated for bilateral quadriceps rupture. During their hospital stay the patient was seen by othropedic surgery, Dr. Byrd and physical therapy. During their hospital stay the patient underwent bilateral quadriceps repair. Post operative course was without complication. At this time the patient is medically stable for discharge to acute rehab. Patient understands and appreciates discharge plan. Patient instructed to follow up with primary care physicians and referrals within three to five days from discharge. Furthermore, the patient is instructed to take medications as prescribed and to return to emergency room for evaluation of intractable headache, fever, chills, dizziness, chest pain, shortness of breath, abdominal pain, nausea, vomiting, diarrhea, constipation, and urinary symptoms. This is a brief summary of the patients hospital course. Please see patient chart for full details. Discharge Exam - Additional Findings Additional findings: Head: Present: Atraumatic, Normocephalic Pupils: Present: PERRL Extroacular Muscles: Present: EOMI Conjunctiva: Present: Normal Ears: Present: Normal Nose (External): Present: Atraumatic Neck: Present: Normal Range of Motion. No: MIDLINE TENDERNESS, Paraspinal Tenderness Respiratory/Chest: Present: Clear to Auscultation, Accessory Muscle Use Cardiovascular: Present: Normal S1, S2 Abdomen: Present: Normal Bowel Sounds. No: Tenderness, Distention Back: Present: Normal Inspection Upper Extremity: Present: Normal Inspection, Normal ROM, NORMAL PULSES. No: Edema Lower Extremity: bilateral lower extremities imobilizers present Neurological: Patient is awake, alert, responds to verbal stimuli, answers questions appropriately, follows commands, and moves upper extremities past midline Skin: Present: Warm, dry Discharge Plan - Discharge Medications Prescriptions: HYDROmorphone [Dilaudid] 1 mg IJ Q4H PRN #1 ml PRN Reason: Pain, Severe (8-10) oxyCODONE/Acetaminophen [Percocet 5/325 mg Tab] 1 ea PO Q4H PRN 3 Days tab PRN Reason: Pain, Moderate (4-7) - Follow Up Plan Condition: GOOD Disposition: REHAB FACILITY/REHAB UNIT Patient education suggested?: Yes Instructions: Patella Tendon Repair (DC), Knee Immobilizer (DC), Tendon Rupture (GEN), Quadriceps Exercises (GEN) Additional Instructions: Patient Instructions: Take medications as prescribed. Follow up with PMD and referrals within three to five days from discharge. Return to emergency room for evaluation of intractable headache, fever, chills, dizziness, chest pain, shortness of breath, abdominal pain, nausea, vomiting, diarrhea, constipation, and urinary symptoms. Referrals: Anderson Hector MD [Primary Care Provider] - <Kinga Byrne - Last Filed: 04/14/17 17:04> Provider - Provider Date of Admission: 04/11/17 14:00 Attending physician: Kinga Byrne MD Primary care physician: Anderson Hector MD Time Spent in preparation of Discharge (in minutes): 35 Hospital Course - Lab Results Lab Results: Most Recent Lab Values WBC 11.0 10^3/ul (4.5-11.0) 04/14/17 06:00 RBC 3.40 10^6/uL (3.5-6.1) L 04/14/17 06:00 Hgb 9.2 g/dL (12.0-16.0) L 04/14/17 06:00 Hct 28.1 % (36.0-48.0) L 04/14/17 06:00 MCV 82.6 fl (80.0-105.0) 04/14/17 06:00 MCH 27.1 pg (25.0-35.0) 04/14/17 06:00 MCHC 32.7 g/dl (31.0-37.0) 04/14/17 06:00 RDW 14.6 % (11.5-14.5) H 04/14/17 06:00 Plt Count 242 10^3/uL (120.0-450.0) 04/14/17 06:00 MPV 8.8 fl (7.0-11.0) 04/14/17 06:00 Gran % 77.4 % (50.0-68.0) H 04/14/17 06:00 Lymph % (Auto) 12.6 % (22.0-35.0) L 04/14/17 06:00 [place] % (Auto) 9.4 % (1.0-6.0) H 04/14/17 06:00 Eos % (Auto) 0.4 % (1.5-5.0) L 04/14/17 06:00 Baso % (Auto) 0.2 % (0.0-3.0) 04/14/17 06:00 Gran # 8.52 (1.4-6.5) H 04/14/17 06:00 Lymph # 1.4 (1.2-3.4) 04/14/17 06:00 [place] # 1.0 (0.1-0.6) H 04/14/17 06:00 Eos # 0.0 (0.0-0.7) 04/14/17 06:00 Baso # 0.02 K/mm3 (0.0-2.0) 04/14/17 06:00 PT 10.1 Seconds (9.9-11.8) 04/10/17 22:54 INR 0.94 (0.93-1.08) 04/10/17 22:54 APTT 26.6 Seconds (23.7-30.8) 04/10/17 22:54 Sodium 136 mmol/L (132-148) 04/13/17 10:00 Potassium 3.6 mmol/L (3.6-5.0) 04/13/17 10:00 Chloride 102 mmol/L (98-107) 04/13/17 10:00 Carbon Dioxide 28 mmol/L (21-33) 04/13/17 10:00 Anion Gap 10 (10-20) 04/13/17 10:00 BUN 8 mg/dL (7-21) 04/13/17 10:00 Creatinine 0.4 mg/dL (0.5-1.4) L 04/13/17 10:00 Est GFR ( Amer) > 60 04/13/17 10:00 Est GFR (Non-Af Amer) > 60 04/13/17 10:00 Random Glucose 131 mg/dL (70-110) H 04/13/17 10:00 Calcium 8.2 mg/dL (8.4-10.5) L 04/13/17 10:00 Total Bilirubin 0.5 mg/dL (0.2-1.3) 04/13/17 10:00 AST 27 U/L (14-36) 04/13/17 10:00 ALT 25 U/L (7-56) 04/13/17 10:00 Alkaline Phosphatase 57 U/L (38-126) 04/13/17 10:00 Lactate Dehydrogenase 552 U/L (333-699) 04/10/17 22:54 Total Creatine Kinase 95 U/L (35-230) 04/10/17 22:54 Troponin I 0.02 ng/mL 04/10/17 22:54 Total Protein 5.7 g/dL (5.8-8.3) L 04/13/17 10:00 Albumin 3.2 g/dL (3.0-4.8) 04/13/17 10:00 Globulin 2.6 gm/dL 04/13/17 10:00 Albumin/Globulin Ratio 1.2 (1.1-1.8) 04/13/17 10:00 Blood Type A POSITIVE 04/11/17 09:30 Blood Type Confirm A POSITIVE 04/11/17 11:30 Antibody Screen Negative 04/11/17 09:30 BBK History Checked No verified bt 04/11/17 09:30 Attending/Attestation - Attestation I have personally seen and examined this patient.: Yes I have fully participated in the care of the patient.: Yes I have reviewed all pertinent clinical information, including history, physical exam and plan: Yes Notes (Text): I have seen and examined the patient at bedside. Agree with the above note with the following additions/ exceptions: Briefly this is 62 year old female with history of HTN and b/l knee arthritis who was admitted s/p falls and developed bilateral quad tendon rupture now s/p repair. Bilateral leg immobilizers in place. Continue analgesics and aspirin. Encourage PT and incentive spirometer. PT is recommending acute rehab. Upon discharge patient will follow up with Dr Hector. Dr Kinga Byrne
[2017-04-14] MEDS: Dextrose 5%/0.45% NS 1,000 ML IV SCH (15:00)
== END 2017-04-14 16:05 | DRG 502 ==
LOC: ED 18:46 → ERH 22:13 → 5RNO 04-11 00:36 → OBSVTOIN 04-11 14:00
PROVIDERS: ADMIT Internal Medicine; ATTEND Hospitalist
PROC: 0LQL0ZZ Repair Right Upper Leg Tendon, Open Approach (ICD-10-PCS; 2017-04-11)
PROC: 0LQM0ZZ Repair Left Upper Leg Tendon, Open Approach (ICD-10-PCS; principal; 2017-04-11 14:00)
DX: S76.111A Strain of right quadriceps muscle, fascia and tendon, initial encounter (principal); S76.112A Strain of left quadriceps muscle, fascia and tendon, initial encounter; M17.0 Bilateral primary osteoarthritis of knee; I10 Essential (primary) hypertension; W19.XXXA Unspecified fall, initial encounter; Y93.89 Activity, other specified; Y92.89 Other specified places as the place of occurrence of the external cause; Y99.9 Unspecified external cause status; Z87.442 Personal history of urinary calculi; Z90.710 Acquired absence of both cervix and uterus